=== PATIENT | male | born 1990 | race Caucasian/White ===

== ENCOUNTER 2017-04-03 12:18 | Inpatient (IN) | payer OTHER ==
[2017-04-03] MEDS ORDERED: NO HOME MEDICATION XX (12:50)
[2017-04-03 13:28] LABS: ANION GAP 13 mmol/L (0-20); BLOOD UREA NITROGEN 15 mg/dl (6-24); CALCIUM 8.8 mg/dl (8.5-10.5); CARBON DIOXIDE-VENOUS 26 mmol/L (22-32); CHLORIDE 99 mmol/l (96-110); CREATININE 1.32 mg/dl (0.60-1.30); GLUCOSE 120 mg/dL (70-110); POTASSIUM 3.9 mmol/L (3.7-5.1); SODIUM 134 mmol/L (135-145); eGFR VALUE FOR BLACK 86 mL/Min
[2017-04-04 07:15] LABS: BASO % 0.1 % (0-2); HCT-HEMATOCRIT 38.5 % (36.0-53.5); HGB-HEMOGLOBIN 13.7 gm/dl (13.5-17.0); IMMATURE GRANULOCYTES ABSOLUTE 0.04 tho/cmm (0-0.03); IMMATURE GRANULOCYTES PERCENT 0.3 % (0-0.3); LYMPH % 5.7 % (20-45); LYMPH ABSOLUTE COUNT 0.8 tho/cmm (0.8-4.5); MCH (MEAN CORPUSCULAR HGB) 29.7 pg (28.0-32.0); MCHC MEAN CORPUSCULAR HGB CONC 35.6 % (32.0-36.0); MCV (MEAN CELL VOLUME) 83.5 fl (82.0-96.0); MEAN PLATELET VOLUME 9.5 cmc (9.4-12.4); MONO % 14.8 % (0-12); MONOCYTE ABSOLUTE COUNT 2.2 tho/cmm (0.0-1.2); NEUTROPHIL ABSOLUTE COUNT 11.6 tho/cmm (1.6-8.0); NEUTROPHIL-AUTOMATED 11.6 tho/cmm (1.6-8.0); NEUTROPHILS % 79.1 % (40-80); PLATELET COUNT 135 tho/cmm (150-450); RED BLOOD COUNT 4.61 mil/cmm (4.40-5.70); RED CELL DISTRIBUTION WIDTH 12.1 % (12.4-16.4); WHITE BLOOD COUNT 14.7 tho/cmm (4.0-10.0)
[2017-04-04 07:29] LABS: ANION GAP 8 mmol/L (0-20); BLOOD UREA NITROGEN 16 mg/dl (6-24); CALCIUM 8.6 mg/dl (8.5-10.5); CARBON DIOXIDE-VENOUS 28 mmol/L (22-32); CHLORIDE 106 mmol/l (96-110); CREATININE 0.94 mg/dl (0.60-1.30); GLUCOSE 140 mg/dL (70-110); POTASSIUM 4.2 mmol/L (3.7-5.1); SODIUM 138 mmol/L (135-145); eGFR VALUE FOR BLACK >90 mL/Min
[2017-04-05] MEDS ORDERED: FLAGYL500 M1 PO (12:19)
[2017-04-05] MEDS ORDERED: NORCO 5-325 TA1 EACH PO (12:28)
== END 2017-04-05 13:30 | DRG 340 ==
LOC: EDMED 12:18 → EMR2 14:47 → ORW 15:23 → BURN 15:59
PROVIDERS: Physician Assistant; ADMIT Surgery
PROC: 0DTJ4ZZ Resection of Appendix, Percutaneous Endoscopic Approach (ICD-10-PCS; principal; 2017-04-03)
PROC: 0W9J4ZZ Drainage of Pelvic Cavity, Percutaneous Endoscopic Approach (ICD-10-PCS; 2017-04-03)
DX: K35.3 Acute appendicitis with localized peritonitis (principal)
CPT/HCPCS: J1335; J7030; Q9967